=== PATIENT | male | born 1950 | race Caucasian/White ===

== ENCOUNTER 2023-07-05 08:18 | Emergency (ER) | payer MEDICARE ==
--- NOTE | 2023-07-05 08:23 | ERPHSYRPT ---
- History of Present Illness Time Seen by Provider: 07/05/23 08:22 Historian: patient Exam Limitations: no limitations Physician History: This is a 73-year-old white male patient who presents with chest to the right of midline sharp chest pain that radiates straight through to his back. Patient has a significant cardiac history with history of myocardial infarction in the past. Patient sees high pressure cleaner Dr. Lynn. Patient states that he does not read or write and he is on several medications and he does not know the names of them. Patient has never been in our emergency department before and there is no comparison twelve-lead EKGs. Patient states that he was not feeling well at all in general yesterday. This morning, he went to make himself a cup of coffee and took a few sips of his coffee and then the pain as described above, came on suddenly. He denies fever. He denies cough. Timing/Duration: today Activities at Onset: none Quality: sharpness, stabbing Location: substernal (Just to the right of the sternum) Chest Pain Radiation: back Severity of Pain-Max: moderate Severity of Pain-Current: moderate Modifying Factors: Improves With: nothing Associated Symptoms: denies symptoms Prior Chest Pain/Cardiac Workup: heart attack Nitro Today/Relief: no nitro taken today Aspirin Treatment Today: no aspirin today Allergies/Adverse Reactions: codeine Allergy (Severe, Verified 07/05/23 08:37) Fainting adhesive tape Adverse Reaction (Mild, Verified 07/05/23 08:44) Home Medications: Albuterol Sulfate [Albuterol Sulfate Hfa] 2 puff IH Q6H 07/05/23 [History] Amlodipine Besylate 5 mg [Norvasc 5 mg] 10 mg PO DAILY 07/05/23 [History] Atorvastatin Calcium 40 mg PO DAILY 07/05/23 [History] Cholecalciferol (Vitamin D3) [Vitamin D3] 125 mcg PO DAILY 07/05/23 [History] Clopidogrel Bisulfate [Clopidogrel] 75 mg PO DAILY 07/05/23 [History] Diclofenac Sodium [Diclofono] 4 gm TOP QID 07/05/23 [History] Famotidine 20 mg [Pepcid 20 MG] 20 mg PO DAILY 07/05/23 [History] Fluoxetine HCl 20 mg [Prozac 20 MG] 40 mg PO DAILY 07/05/23 [History] Fluticasone/Vilanterol [Breo Ellipta 100-25 Mcg Inhalr] 2 spray IN QAM 07/05/23 [History] Gabapentin [Neurontin ] 300 mg PO DAILY 07/05/23 [History] Ketoconazole Cream [Nizoral CREAM] 1 dose TOP DAILY 07/05/23 [History] Labetalol HCl 100 mg [Trandate 100 MG] 100 mg PO DAILY 07/05/23 [History] Lisinopril 20 mg [Zestril 20 MG] 40 mg PO DAILY 07/05/23 [History] Loratadine 10 mg [Claritin 10 mg] 10 mg PO DAILY 07/05/23 [History] Meloxicam 15 mg [Meloxicam 15 MG] 15 mg PO DAILY 07/05/23 [History] Tamsulosin HCl 0.4 mg [Flomax 0.4 MG] 0.4 mg PO DAILY 07/05/23 [History] Travel Risk - International Travel Have you traveled outside of the country in past 3 weeks: No - Coronavirus Screening Are you exhibiting any of the following symptoms?: No Close contact with a COVID-19 positive Pt in past 14-21 Days: No - Review of Systems Constitutional: No Symptoms Eyes: No Symptoms Ears, Nose, & Throat: No Symptoms Respiratory: No Symptoms Cardiac: Chest Pain Abdominal/Gastrointestinal: Abdominal Pain Genitourinary Symptoms: No Symptoms Musculoskeletal: No Symptoms Skin: No Symptoms Neurological: No Symptoms Psychological: No Symptoms Endocrine: No Symptoms Hematologic/Lymphatic: No Symptoms Immunological/Allergic: No Symptoms All Other Systems: Reviewed and Negative - Past Medical History Pertinent Past Medical History: Yes - Past Surgical History Past Surgical History: Yes - Nursing Vital Signs Nursing Vital Signs: Initial Vital Signs Temperature 96.5 F 07/05/23 08:23 Pulse Rate 81 07/05/23 08:23 Respiratory Rate 16 07/05/23 08:23 Blood Pressure 190/107 07/05/23 08:23 O2 Sat by Pulse Oximetry 100 07/05/23 08:23 Pain Scale Pain Intensity 2 - Physical Exam General Appearance: mild distress, alert (Moderate), anxiety Eye Exam: PERRL/EOMI, eyes nml inspection Ears, Nose, Throat Exam: normal ENT inspection, moist mucous membranes Neck Exam: normal inspection, non-tender, supple, full range of motion Respiratory Exam: normal breath sounds, chest tenderness, lungs clear, airway intact, No respiratory distress Cardiovascular Exam: regular rate/rhythm, normal heart sounds, normal peripheral pulses Gastrointestinal/Abdomen Exam: soft, normal bowel sounds, tenderness (Right upper quadrant to palpation), guarding (Right upper quadrant to palpation) Rectal Exam: not done Back Exam: normal inspection, normal range of motion, No CVA tenderness, No vertebral tenderness Extremity Exam: normal inspection, normal range of motion, pelvis stable Neurologic Exam: alert, oriented x 3, cooperative, ethanol maintenance mechanic II-XII nml as tested, normal mood/affect, nml cerebellar function, nml station & gait, sensation nml Lymphatic Exam: No adenopathy SpO2 Interpretation: normal O2 Delivery: Room Air - Course Nursing assessment & vital signs reviewed: Yes EKG Interpreted by Me: RATE (80), Sinus Rhythm, NORMAL AXIS, NORMAL INTERVALS, NORMAL QRS, NORMAL ST-T, Other (No acute ischemic changes on today's twelve-lead EKG. The computer readout says minimal ST elevation anterior leads. However I do not appreciate the elevation on my read of this twelve-lead EKG.) Ordered Tests: Active Orders 24 hr Category Date Time Status Bakery Chef STAT Care 07/05/23 08:31 Active EKG-ER Only STAT Care 07/05/23 08:31 Active IV Insertion STAT Care 07/05/23 08:31 Active Pulse Oximetry (ED) STAT Care 07/05/23 08:31 Active ABDOMEN AND PELVIS W/0 CONTRAS [CT] Stat Exams 07/05/23 09:16 Completed CHEST WITH CONTRAST [CT] Stat Exams 07/05/23 09:17 Completed CBC W DIFF Stat Lab 07/05/23 08:35 Completed CMP Stat Lab 07/05/23 08:35 Completed D-DIMER QUANTITATIVE Stat Lab 07/05/23 08:35 Completed NT PRO BNPII Stat Lab 07/05/23 08:35 Completed PROTIME WITH INR Stat Lab 07/05/23 08:35 Completed TROPONIN Q4H Lab 07/05/23 08:35 Completed TROPONIN Q4H Lab 07/05/23 11:23 Completed TROPONIN Q4H Lab 07/05/23 16:45 Ordered UA W/RFX UR CULTURE Stat Lab 07/05/23 10:54 Completed Medication Summary Discontinued Medications Generic Name Dose Route Start Last Admin Trade Name Rosanna PRN Reason Stop Dose Admin Sodium Chloride 500 mls @ 500 mls/hr 07/05/23 09:20 07/05/23 10:51 Sodium Chloride 0.9% 500 Ml IV 07/05/23 10:19 Infused .Q1H ONE Infusion Sodium Chloride Confirm 07/05/23 09:22 Sodium Chloride 0.9% 500 Ml Administered 07/05/23 09:23 Dose 500 mls @ ud IV .STK-MED ONE Morphine Sulfate 4 mg 07/05/23 08:31 07/05/23 08:49 Morphine Sulfate 4 Mg/Ml Injection IV 07/05/23 08:32 4 mg STAT ONE Administration Morphine Sulfate Confirm 07/05/23 08:41 Morphine Sulfate 4 Mg/Ml Injection Administered 07/05/23 08:42 Dose 4 mg .ROUTE .STK-MED ONE Nitroglycerin 0.4 mg 07/05/23 08:31 07/05/23 08:46 Nitroglycerin 0.4 Mg (Ed) 0.4 Mg Tab.Subl SL 07/05/23 08:32 0.4 mg STAT ONE Administration Nitroglycerin Confirm 07/05/23 08:41 Nitroglycerin 0.4 Mg (Ed) 0.4 Mg Tab.Subl Administered 07/05/23 08:42 Dose 0.4 mg SL .STK-MED ONE Ondansetron HCl 4 mg 07/05/23 08:31 07/05/23 08:47 Ondansetron Hcl 4 Mg/2 Ml Vial IV 07/05/23 08:32 4 mg STAT ONE Administration Ondansetron HCl Confirm 07/05/23 08:40 Ondansetron Hcl 4 Mg/2 Ml Vial Administered 07/05/23 08:41 Dose 4 mg .ROUTE .STK-MED ONE Lab/Rad Data: Laboratory Result Diagrams 07/05/23 08:35 07/05/23 08:35 Laboratory Results 07/05/23 07/05/23 07/05/23 Range/Units 11: 10:54 08:40 WBC (4.0-10.5) x10^3/uL RBC (4.1-5.6) x10^6/uL Hgb (12.5-18.0) g/dL Hct (42-50) % MCV (78-100) fL MCH (26-32) pg MCHC (32-36) g/dL RDW (11.5-14.0) % Plt Count (150-450) x10^3/uL MPV (7.5-11.0) fL Gran % (36.0-66.0) % Immature Gran % (Auto) (0.00-0.4) % Nucleat RBC Rel Count (0.00-0.1) % Eos # (Auto) (0-0.5) x10^3/uL Immature Gran # (Auto) (0.00-0.03) x10^3u/L Absolute Lymphs (auto) (1.0-4.6) x10^3/uL Absolute Monos (auto) (0.0-1.3) x10^3/uL Absolute Nucleated RBC (0.00-0.01) x10^3u/L Lymphocytes % (24.0-44.0) % Monocytes % (0.0-12.0) % Eosinophils % (0.00-5.0) % Basophils % (0.0-0.4) % Absolute Granulocytes (1.4-6.9) x10^3/uL Basophils # (0-0.4) x10^3/uL PT (9.4-12.5) SECONDS INR (0.8-3.0) D-Dimer (0.0-0.50) mg/L Sodium (137-145) mmol/L Potassium (3.5-5.1) mmol/L Chloride (98-107) mmol/L Carbon Dioxide (22-30) mmol/L Anion Gap (5-15) MEQ/L BUN (9-20) mg/dL Creatinine (0.66-1.25) mg/dL Estimated GFR ML/MIN Glucose (74-106) mg/dL Calcium (8.4-10.2) mg/dL Total Bilirubin (0.2-1.3) mg/dL AST (17-59) U/L ALT (0-50) U/L Alkaline Phosphatase (38-126) U/L Troponin I < 0.012 (0.000-0.034) ng/mL NT-Pro-B Natriuret Pep (<300) pg/mL Serum Total Protein (6.3-8.2) g/dL Albumin (3.5-5.0) g/dL Urine Color Yellow (Yellow) Urine Appearance Clear (Clear) Urine pH 6.5 (4.6-8.0) Ur Specific [place] 1.015 (1.005-1.030) Urine Protein Negative (Negative) Urine Glucose (UA) Negative (Negative) mg/dL Urine Ketones Negative (Negative) Urine Blood Negative (Negative) Urine Nitrite Negative (Negative) Urine Bilirubin Negative (Negative) Urine Urobilinogen 0.2 (0.2) mg/dL Ur Leukocyte Esterase Negative (Negative) U Hyaline Cast (Auto) NONE SEEN (0-2) /LPF Urine Microscopic RBC 0-2 (0-5) /HPF Urine Microscopic WBC 0-2 (0-5) /HPF Ur Epithelial Cells None Seen (None Seen) /HPF Urine Bacteria None Seen (None Seen) /HPF Urine Culture Reflexed NO (NO) Influenza Type A Ag NEGATIVE (NEGATIVE) Influenza Type B Ag NEGATIVE (NEGATIVE) RSV (PCR) NEGATIVE (NEGATIVE) SARS-CoV-2 (PCR) NEGATIVE (NEGATIVE) 07/05/23 07/05/23 07/05/23 Range/Units 08:35 08:35 08:35 WBC (4.0-10.5) x10^3/uL RBC (4.1-5.6) x10^6/uL Hgb (12.5-18.0) g/dL Hct (42-50) % MCV (78-100) fL MCH (26-32) pg MCHC (32-36) g/dL RDW (11.5-14.0) % Plt Count (150-450) x10^3/uL MPV (7.5-11.0) fL Gran % (36.0-66.0) % Immature Gran % (Auto) (0.00-0.4) % Nucleat RBC Rel Count (0.00-0.1) % Eos # (Auto) (0-0.5) x10^3/uL Immature Gran # (Auto) (0.00-0.03) x10^3u/L Absolute Lymphs (auto) (1.0-4.6) x10^3/uL Absolute Monos (auto) (0.0-1.3) x10^3/uL Absolute Nucleated RBC (0.00-0.01) x10^3u/L Lymphocytes % (24.0-44.0) % Monocytes % (0.0-12.0) % Eosinophils % (0.00-5.0) % Basophils % (0.0-0.4) % Absolute Granulocytes (1.4-6.9) x10^3/uL Basophils # (0-0.4) x10^3/uL PT 10.4 (9.4-12.5) SECONDS INR 0.95 (0.8-3.0) D-Dimer 0.54 H (0.0-0.50) mg/L Sodium 136 L (137-145) mmol/L Potassium 4.4 (3.5-5.1) mmol/L Chloride 104 (98-107) mmol/L Carbon Dioxide 19 L (22-30) mmol/L Anion Gap 16.9 H (5-15) MEQ/L BUN 36 H (9-20) mg/dL Creatinine 1.12 (0.66-1.25) mg/dL Estimated GFR 69.8 ML/MIN Glucose 104 (74-106) mg/dL Calcium 9.4 (8.4-10.2) mg/dL Total Bilirubin 0.50 (0.2-1.3) mg/dL AST 30 (17-59) U/L ALT 28 (0-50) U/L Alkaline Phosphatase 98 (38-126) U/L Troponin I < 0.012 (0.000-0.034) ng/mL NT-Pro-B Natriuret Pep < 20.0 (<300) pg/mL Serum Total Protein 8.3 H (6.3-8.2) g/dL Albumin 4.6 (3.5-5.0) g/dL Urine Color (Yellow) Urine Appearance (Clear) Urine pH (4.6-8.0) Ur Specific [place] (1.005-1.030) Urine Protein (Negative) Urine Glucose (UA) (Negative) mg/dL Urine Ketones (Negative) Urine Blood (Negative) Urine Nitrite (Negative) Urine Bilirubin (Negative) Urine Urobilinogen (0.2) mg/dL Ur Leukocyte Esterase (Negative) U Hyaline Cast (Auto) (0-2) /LPF Urine Microscopic RBC (0-5) /HPF Urine Microscopic WBC (0-5) /HPF Ur Epithelial Cells (None Seen) /HPF Urine Bacteria (None Seen) /HPF Urine Culture Reflexed (NO) Influenza Type A Ag (NEGATIVE) Influenza Type B Ag (NEGATIVE) RSV (PCR) (NEGATIVE) SARS-CoV-2 (PCR) (NEGATIVE) 07/05/23 Range/Units 08:35 WBC 6.5 (4.0-10.5) x10^3/uL RBC 4.42 (4.1-5.6) x10^6/uL Hgb 13.4 (12.5-18.0) g/dL Hct 39.8 L (42-50) % MCV 90.0 (78-100) fL MCH 30.3 (26-32) pg MCHC 33.7 (32-36) g/dL RDW 13.7 (11.5-14.0) % Plt Count 275 (150-450) x10^3/uL MPV 9.1 (7.5-11.0) fL Gran % 47.1 (36.0-66.0) % Immature Gran % (Auto) 0.2 (0.00-0.4) % Nucleat RBC Rel Count 0.0 (0.00-0.1) % Eos # (Auto) 0.28 (0-0.5) x10^3/uL Immature Gran # (Auto) 0.01 (0.00-0.03) x10^3u/L Absolute Lymphs (auto) 2.42 (1.0-4.6) x10^3/uL Absolute Monos (auto) 0.70 (0.0-1.3) x10^3/uL Absolute Nucleated RBC 0.00 (0.00-0.01) x10^3u/L Lymphocytes % 37.1 (24.0-44.0) % Monocytes % 10.7 (0.0-12.0) % Eosinophils % 4.3 (0.00-5.0) % Basophils % 0.6 (0.0-0.4) % Absolute Granulocytes 3.07 (1.4-6.9) x10^3/uL Basophils # 0.04 (0-0.4) x10^3/uL PT (9.4-12.5) SECONDS INR (0.8-3.0) D-Dimer (0.0-0.50) mg/L Sodium (137-145) mmol/L Potassium (3.5-5.1) mmol/L Chloride (98-107) mmol/L Carbon Dioxide (22-30) mmol/L Anion Gap (5-15) MEQ/L BUN (9-20) mg/dL Creatinine (0.66-1.25) mg/dL Estimated GFR ML/MIN Glucose (74-106) mg/dL Calcium (8.4-10.2) mg/dL Total Bilirubin (0.2-1.3) mg/dL AST (17-59) U/L ALT (0-50) U/L Alkaline Phosphatase (38-126) U/L Troponin I (0.000-0.034) ng/mL NT-Pro-B Natriuret Pep (<300) pg/mL Serum Total Protein (6.3-8.2) g/dL Albumin (3.5-5.0) g/dL Urine Color (Yellow) Urine Appearance (Clear) Urine pH (4.6-8.0) Ur Specific [place] (1.005-1.030) Urine Protein (Negative) Urine Glucose (UA) (Negative) mg/dL Urine Ketones (Negative) Urine Blood (Negative) Urine Nitrite (Negative) Urine Bilirubin (Negative) Urine Urobilinogen (0.2) mg/dL Ur Leukocyte Esterase (Negative) U Hyaline Cast (Auto) (0-2) /LPF Urine Microscopic RBC (0-5) /HPF Urine Microscopic WBC (0-5) /HPF Ur Epithelial Cells (None Seen) /HPF Urine Bacteria (None Seen) /HPF Urine Culture Reflexed (NO) Influenza Type A Ag (NEGATIVE) Influenza Type B Ag (NEGATIVE) RSV (PCR) (NEGATIVE) SARS-CoV-2 (PCR) (NEGATIVE) - Progress Progress: improved, re-examined Air Movement: good Progress Note: 07/05/23 08:29 This patient's medical issue is 1 of moderate to high complexity. The level of complexity and the work-up performed is based on the review of the patient's past medical history, review the patient's medication list, review of the patient's drug allergy list, history of present illness and physical findings on examination. The work-up in this patient includes placement of intravenous line, twelve-lead EKG, CBC, CMP, BNP, troponin level, D-dimer level, urinalysis, CT scan of abdomen pelvis and likely CT scan of the chest. If the D-dimer is elevated we will use contrast. If it is not elevated we will do a CT scan of the chest without contrast. We will provide the patient with some pain relief. 07/05/23 10:48 I reviewed and interpreted the patient's laboratory results. He does have an elevated D-dimer. Although only slightly elevated, the patient did present with chest pain that radiated straight through to his back. Based on this we ordered a CT scan of the chest with contrast. The following studies were interpreted by the radiologist and I reviewed the impression. I also discussed the results of the studies with the patient: CT scan of the abdomen pelvis without contrast shows no abdominal aortic aneurysm. No free air or free fluid. There is multilevel degenerative spondylosis. CT scan of the chest with contrast shows no acute cardiopulmonary abnormality. There is no pulmonary embolus. There is no aneurysmal dissection. There is di ffuse sclerotic appearing spine. Osteoblastic malignancy not completely excluded. I did discuss with the patient the importance of following up on this study with his primary care provider. We will keep the patient here for 3-hour troponin and a 3-hour twelve-lead EKG. If these studies are negative for any acute, emergent process, we will discharge the patient to home to follow-up with his primary care provider and high pressure cleaner. 07/05/23 12:52 Patient reexamined. He has no complaints of shortness of breath, back pain or chest pain. The 3-hour twelve-lead EKG shows a heart rate of 70 bpm. It is in normal sinus rhythm. There is normal axis deviation, there is normal intervals and normal QRS. There is no evidence of any acute ischemic changes. 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 Call your primary care provider today to, 07/05/2023, to make a follow-up appointment to discuss your spinal findings. In addition, call your high pressure cleaner today, 07/05/2023, to make a follow-up appointment and for further instructions.
[2023-07-05 08:36] VITALS: TEMP 96.5
[2023-07-05 08:38] LABS: Absolute Neutrophil Ct (ANC) 3.07 x10^3/uL (1.4-6.9); BASOPHIL % 0.6 % (0.0-0.4); Basophil (Absolute #) 0.04 x10^3/uL (0-0.4); Eosinophil % 4.3 % (0.00-5.0); Eosinophil (Absolute #) 0.28 x10^3/uL (0-0.5); Hematocrit 39.8 % (42-50); Hemoglobin 13.4 g/dL (12.5-18.0); IMMATURE GRAN # 0.01 x10^3u/L (0.00-0.03); IMMATURE GRAN % 0.2 % (0.00-0.4); Lymphocyte (Absolute #) 2.42 x10^3/uL (1.0-4.6); Lymphocytes % 37.1 % (24.0-44.0); Mean Corpuscular Hemoglobin 30.3 pg (26-32); Mean Corpuscular Hgb Concent. 33.7 g/dL (32-36); Mean Platelet Volume 9.1 fL (7.5-11.0); Monocytes % 10.7 % (0.0-12.0); Neutrophil % 47.1 % (36.0-66.0); Platelet Count 275 x10^3/uL (150-450); Red Blood Count 4.42 x10^6/uL (4.1-5.6); Red Cell Distribution Width 13.7 % (11.5-14.0); White Blood Count 6.5 x10^3/uL (4.0-10.5)
[2023-07-05] MEDS ORDERED: Zofran 4 MG/2 ML VIAL ONE (08:40)
[2023-07-05] MEDS ORDERED: MORPHINE SULFATE 4 MG INJ ONE (08:41)
[2023-07-05] MEDS ORDERED: Nitrostat 0.4 MG (ED) SL ONE (08:41)
[2023-07-05] MEDS: Nitrostat 0.4 MG (ED) SL ONE (08:46)
[2023-07-05] MEDS: Zofran 4 MG/2 ML VIAL IV ONE (08:47)
[2023-07-05] MEDS: MORPHINE SULFATE 4 MG INJ IV ONE (08:49)
[2023-07-05 08:55] LABS: ALBUMIN 4.6 g/dL (3.5-5.0); ANION GAP 16.9 MEQ/L (5-15); BILIRUBIN,TOTAL 0.5 mg/dL (0.2-1.3); Calcium 9.4 mg/dL (8.4-10.2); Creatinine 1 1.12 mg/dL (0.66-1.25); D-DIMER QUANTITATIVE 0.54 mg/L (0.0-0.50); EST GLOMERULAR FILTRATION RATE 69.8 ML/MIN; INR 0.95 (0.8-3.0); PROTIME 10.4 SECONDS (9.4-12.5); Potassium 4.4 mmol/L (3.5-5.1); Total Protein 8.3 g/dL (6.3-8.2)
[2023-07-05 09:07] LABS: NT PRO BNPII < 20.0 pg/mL (<300); TROPONIN < 0.012 ng/mL (0.000-0.034)
[2023-07-05 09:22] LABS: INFLUENZA A NEGATIVE (NEGATIVE); INFLUENZA B NEGATIVE (NEGATIVE); RESPIRATORY SYNCTIAL VIRUS NEGATIVE (NEGATIVE); SARS-CoV-2 Xpert Express NEGATIVE (NEGATIVE)
[2023-07-05] MEDS ORDERED: Sodium Chloride 0.9% 500 ML 500 ML IV ONE (09:22)
[2023-07-05] MEDS: Sodium Chloride 0.9% 500 ML 500 ML IV ONE (09:23)
--- NOTE | 2023-07-05 10:29 | XRAY ---
Indication: Chest pain, short of breath, and elevated d-dimer. Multiple contiguous axial images obtained through the chest using 80 cc Isovue 370 contrast and PE protocol. Comparison: None Adequate opacification of the pulmonary arteries to include the lobar and segmental branches. No pulmonary embolus. Heart not enlarged. Aorta mildly arteriosclerotic without aneurysm/dissection. Tiny mediastinal and right hilar calcified nodes. No pathologic mediastinal/hilar lymphadenopathy. Small hiatal hernia. Lungs demonstrate mild dependent atelectasis. No suspicious pulmonary mass/nodule, infiltrate, effusion, or pneumothorax. Bony thorax intact with mild/moderate degenerative changes throughout the visualized spine. Visualized spine demonstrates diffuse sclerosis possibly explained by degenerative spondylosis. Osteoblastic malignancy not completely excluded in the right clinical setting. CT abdomen/pelvis reported separately. Impression: 1. Negative pulmonary posterior no acute cardiopulmonary abnormalities. 2. Incidental hiatal hernia, chronic bony findings, and old granulomatous disease. 3. Diffuse sclerotic appearing spine possibly explained by degenerative spondylosis. Osteoblastic malignancy not completely excluded in right clinical setting.
--- NOTE | 2023-07-05 10:33 | XRAY ---
Indication: Right upper quadrant/right flank pain. Multiple contiguous axial images obtained through the abdomen and pelvis without contrast using renal stone protocol. Comparison: None CT chest reported separately. Inferior right kidney demonstrates 2-3 mm nonobstructing calculus. No other renal calculus or evidence for obstructive uropathy. Left kidney demonstrates 3 exophytic cysts, largest 2.1 cm lower pole. Both renal arteries demonstrate scattered arteriosclerotic calcifications. Noncontrasted stomach and bowel loops appear nonobstructed with normal air-filled appendix. No free fluid/air. Remaining liver, gallbladder, pancreas, spleen, adrenal glands, kidneys, ureters, and bladder are unremarkable for noncontrast exam. Mild scattered aortoiliac calcifications without AAA. Osseous structures intact with mild/moderate degenerative changes throughout the visualized spine. Visualized spine demonstrates diffuse sclerosis possibly explained by degenerative spondylosis. Osteoblastic malignancy not completely excluded in the right clinical setting. Impression: 1. Nonobstructing right renal micro-calculus. 2. Incidental left renal cysts, arteriosclerotic disease, and multilevel degenerative spondylosis. 3. Diffuse sclerotic appearing spine possibly explained by degenerative spondylosis. Osteoblastic malignancy not completely excluded in right clinical setting.
[2023-07-05 10:54] VITALS: PULSE 72
[2023-07-05 11:12] LABS: Appearance Clear (Clear); Bacteria None Seen /HPF (None Seen); Bilirubin Negative (Negative); Blood Negative (Negative); Epithelial Cells None Seen /HPF (None Seen); Glucose, Urine Negative (Negative); Hyaline Casts NONE SEEN /LPF (0-2); Ketones Negative (Negative); Leukocyte Esterase Negative (Negative); Nitrite Negative (Negative); Ph 6.5 (4.6-8.0); Protein,Urine Dip Negative (Negative); RBC 0-2 /HPF (0-5); Specific Gravity 1.015 (1.005-1.030); Urobilinogen 0.2 mg/dL (0.2); WBC 0-2 /HPF (0-5)
[2023-07-05 11:13] LABS: ADD URINE CULTURE? NO (NO)
[2023-07-05 13:15] VITALS: BP 153/92; RESP 16; O2SAT 96
== END 2023-07-05 13:19 | disposition home or self-care (01) ==
LOC: ED 08:18
DX: R07.89 Other chest pain (principal); M47.9 Spondylosis, unspecified; I25.2 Old myocardial infarction; Z79.02 Long term (current) use of antithrombotics/antiplatelets; Z79.899 Other long term (current) drug therapy; Z20.828 Contact with and (suspected) exposure to other viral communicable diseases
CPT/HCPCS: 0241U; 36000; 36415; 71260; 74176; 80053; 81001; 83880; 84484; 85025; 85379; 85610; 93005; 93041; 94760; 96374; 96375; 99284; J2270; J2405; A9270-GY

== ENCOUNTER 2024-05-30 07:59 | Day surgery (SDC) | payer MEDICARE ==
[2024-05-30] MEDS ORDERED: VIGAMOX/BSS 0.15% SYR IO ONE (08:15)
[2024-05-30] MEDS ORDERED: TRIAMCINOLONE 15 MG/ML INJ INTRAOP ONE (08:15)
[2024-05-30] MEDS ORDERED: BETADINE 5% OPHTHALMIC 30 ML OP ONE (08:15)
[2024-05-30] MEDS: TETRACAINE 0.5% STERI-UNIT SOL OP ONE ×2 (08:44→09:18)
[2024-05-30] MEDS: Sodium Chloride 0.9% 10 ML FLUSH Syringe IJ ONE (08:45)
[2024-05-30] MEDS: Ak-Dilate OPHTHALMIC*** 1.065 ML, Cyclogyl 1% OPHTH SOL 1.065 ML, GATIFLOXACIN 0.5% OPH... OP ONE (08:45)
[2024-05-30] MEDS ORDERED: Zofran 4 MG/2 ML VIAL IV PRN (10:30)
[2024-05-30] MEDS ORDERED: DIPRIVAN 200 MG/20 ML IV ONE ×2 (11:03→11:11)
[2024-05-30] MEDS: ACETAZOLAMIDE 250 MG TABLET PO ONE (11:30)
[2024-05-30 11:35] VITALS: RESP 16
[2024-05-30 11:37] VITALS: TEMP 97
[2024-05-30 11:42] VITALS: BP 102/55; PULSE 71; O2SAT 96
== END 2024-05-30 11:50 | disposition home or self-care (01) ==
LOC: SDC 07:59
PROVIDERS: ATTEND Ophthalmology
DX: H25.811 Combined forms of age-related cataract, right eye (principal)
CPT/HCPCS: C1780; J2704; A9270-GY

== ENCOUNTER 2024-07-04 06:47 | Day surgery (SDC) | payer MEDICARE ==
[2024-07-04] MEDS ORDERED: Sodium Chloride 0.9% 10 ML FLUSH Syringe IJ ONE (07:00)
[2024-07-04] MEDS: TETRACAINE 0.5% STERI-UNIT SOL OP ONE ×2 (08:13→08:24)
[2024-07-04] MEDS: Ak-Dilate OPHTHALMIC*** 1.065 ML, Cyclogyl 1% OPHTH SOL 1.065 ML, GATIFLOXACIN 0.5% OPH... OP ONE (08:14)
[2024-07-04] MEDS ORDERED: Epinephrine Preservative Free 1 MG/ML IJ ONE (09:15)
[2024-07-04] MEDS ORDERED: BETADINE 5% OPHTHALMIC 30 ML OP ONE (09:15)
[2024-07-04] MEDS ORDERED: TRIAMCINOLONE 15 MG/ML INJ INTRAOP ONE (09:15)
[2024-07-04] MEDS ORDERED: VIGAMOX/BSS 0.15% SYR IO ONE (09:15)
[2024-07-04] MEDS ORDERED: Zofran 4 MG/2 ML VIAL IV PRN (09:15)
[2024-07-04] MEDS ORDERED: DIPRIVAN 200 MG/20 ML IV ONE ×2 (09:48→10:02)
[2024-07-04] MEDS ORDERED: SUBLIMAZE 100 MCG/2 ML ONE (09:56)
[2024-07-04 10:11] VITALS: RESP 18; TEMP 97.9
[2024-07-04] MEDS: ACETAZOLAMIDE 250 MG TABLET PO ONE (10:20)
[2024-07-04 10:22] VITALS: PULSE 69
[2024-07-04 10:25] VITALS: BP 127/81; O2SAT 98
== END 2024-07-04 10:42 | disposition home or self-care (01) ==
LOC: SDC 06:47
PROVIDERS: ATTEND Ophthalmology
DX: H25.812 Combined forms of age-related cataract, left eye (principal)
CPT/HCPCS: 99100; C1780; J0171; J2704; J3010; A9270-GY